=== PATIENT | male | born 1970 | race Caucasian/White ===

== ENCOUNTER 2020-12-16 08:54 | Outpatient (CLI) | payer MEDICARE, OTHER | END 2020-12-16 08:55 | disposition home or self-care (01) | LOC: TBSIIMAG 08:54 | PROVIDERS: ATTEND Physician Assistant | DX: M47.22 Other spondylosis with radiculopathy, cervical region (principal); Z98.890 Other specified postprocedural states | CPT/HCPCS: 72040 ==